=== PATIENT | female | born 1940 | race Caucasian/White ===

== ENCOUNTER 2017-06-04 22:08 | Emergency (ER) | payer OTHER ==
[2017-06-04] MEDS ORDERED: IBUPROFEN 600 MG TABLET PO ONE (23:08)
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
--- NOTE | 2017-06-05 11:13 | RADIOLOGY REPORT ---
Three views of the left shoulder demonstrate no displaced injury. The joints are unremarkable. IMPRESSION: No displaced injury. If clinically indicated, further evaluation and/or follow-up may be of benefit. ALYCIA
== END 2017-06-04 23:08 | disposition home or self-care (01) ==
LOC: ER 22:08
DX: S49.82XA Other specified injuries of left shoulder and upper arm, initial encounter (principal); V43.62XA Car passenger injured in collision with other type car in traffic accident, initial encounter; Y92.410 Unspecified street and highway as the place of occurrence of the external cause; I10 Essential (primary) hypertension; Z79.899 Other long term (current) drug therapy
CPT/HCPCS: 99283